=== PATIENT | male | born 1925 | race Caucasian/White ===

== ENCOUNTER → 2016-10-25 | Outpatient (CLI) | payer OTHER, BC ==
[~2016-10-25] MED LIST: ADULT LOW DOSE81 MG PO; AKWA TEARS EYE15 ML OPHTHALMIC; ARTIFICIAL TEAR15 M3 OPHTHALMIC; ASPIRIN81 M2 PO; AZILECT1 MG PO; CALCIUM 500 +1 EACH PO; CALCIUM 600 +1 EAC7 PO; CALCIUM CITRATE; CENTRUM SILVER1 EAC4 PO; CIPRO250 M1 PO; FISH OIL 1,2001 EAC3 PO; FLOMAX0.4 MG PO; FUROSEMIDE 40 M40 M1 PO; GLUCOSAMINE HC500 MG PO; GLUCOSAMINE1000 MG PO; LACTINEX CHEWA1 EACH PO; LASIX 40 MG TAB40 M2 PO; LEVAQUIN 500 M500 M2 PO; LISINOPRIL10 MG PO; LORTAB 5-325 M1 EACH PO; METAMUCIL PAC1 UDPKT PO; METAMUCIL283 GM; MIDODRINE HCL 55 M1 PO; MYRBETRIQ25 MG PO; NEUPRO1 EAC1; NEUPRO1 EAC1 TRANSDERM; NORCO 5-325 TA1 EACH PO; OMEGA 3-6-9 CO1 EACH; OMEGA-31000 M1 PO; POTASSIUM; POTASSIUM20 PO; REQUIP XL12 MG PO; REQUIP XL2 MG PO; REQUIP XL6 MG PO; REQUIP3 MG PO; SIMVASTATIN20 MG PO; SIMVASTATIN40 MG PO; STALEVO 100 TAB1 TAB PO; STALEVO 125 TA1 EACH PO; STALEVO 200 TA1 EACH PO; TAMSULOSIN HCL0.4 M1 PO; TAMSULOSIN HCL0.4 MG PO; TOVIAZ8 MG PO; VITAMIN D1000 UNI1 PO; VOLTAREN GEL 1100 GM TOP; ZOCOR40 MG PO; [UNRECOGNIZED DRUG - OTHER] PO
== END ==
LOC: CAT 09:30
DX: M47.892 Other spondylosis, cervical region (principal); M40.40 Postural lordosis, site unspecified; G31.9 Degenerative disease of nervous system, unspecified